=== PATIENT | male | born 1970 | race Caucasian/White ===

== ENCOUNTER 2018-07-12 08:33 | Emergency (ER) | payer OTHER ==
[~2018-07-12] VITALS: Ht 177.8 cm; Wt 80.3 kg
[~2018-07-12 08:33] MED LIST: HTN MEDICATIONS
[2018-07-12] MEDS ORDERED: LISINOPRIL30 MG PO (08:56)
[2018-07-12] MEDS ORDERED: LANSOPRAZOLE30 MG PO (08:56)
[2018-07-12] MEDS ORDERED: KETOROLAC TROMETHAMINE 60 MG/2 ML VIAL IM STA (09:05)
[2018-07-12 09:58] VITALS: BP 142/73
== END 2018-07-12 09:55 | disposition home or self-care (01) ==
LOC: FSED 08:33
DX: M54.5 Low back pain (principal); S39.012A Strain of muscle, fascia and tendon of lower back, initial encounter; I10 Essential (primary) hypertension; K21.9 Gastro-esophageal reflux disease without esophagitis; K92.9 Disease of digestive system, unspecified
CPT/HCPCS: 81003; 96372; 99283; J1885